=== PATIENT | male | born 1970 | race Caucasian/White ===

== ENCOUNTER 2017-01-14 15:08 | Emergency (ER) | payer MEDICARE, OTHER | END 2017-01-14 16:20 | disposition home or self-care (01) | LOC: ER1 15:08 | DX: M10.9 Gout, unspecified (principal); I10 Essential (primary) hypertension | CPT/HCPCS: 96372; 99283; J1885; J2930 ==

== ENCOUNTER 2017-02-01 12:35 | Emergency (ER) | payer MEDICARE, OTHER ==
[2017-02-01 13:33] LABS: HEMOGLOBIN 14.7 gm/dl (14.0-17.5); RED BLOOD COUNT 4.53 M/UL (4.20-5.50)
[2017-02-01 13:56] LABS: BUN/CREATININE RATIO 8 (0-10)
== END 2017-02-01 14:35 | disposition home or self-care (01) ==
LOC: ER1 12:35
PROVIDERS: Physician Assistant Medical
DX: M10.9 Gout, unspecified (principal); Z79.899 Other long term (current) drug therapy
CPT/HCPCS: 36415; 80053; 84550; 85025; 96372; 99283; J1885; J2930

== ENCOUNTER 2020-10-20 16:47 | Emergency (ER) | payer MEDICARE, OTHER ==
[~2020-10-20 16:47] MED LIST: ANTIVERT 12.512.5 MG PO; AUGMENTIN 875-1 EACH PO; BENADRYL 25MG C25 MG PO; CATAPRES0.2 MG PO; CILOXAN 0.3% O2.5 ML EYEBOTH; CLINDAMYCIN HC300 MG PO; CLONAZEPAM1 MG PO; COLCHICINE0.6 M1 PO; DOXYCYCLINE HY100 MG PO; FLONASE 0.05% N16 GM; HYDROCODON-ACE1 EAC4 PO; KENALOG CREAM 015 GM TOP; LEVAQUIN750 MG PO; LEVOFLOXACIN250 MG PO; MEDROL DOSEPAK 24 MG PO; MEDROL4 MG PO; METHOTREXATE SQ; NEURONTIN 300300 MG PO; NORCO 5-325 TA1 EACH PO; NORCO 7.5-3251 EACH PO; NORFLEX 100 MG100 MG PO; OMNICEF 300 MG300 MG PO; PERCOCET 5-3251 EACH PO; PERCOCET 5/325 T1 EA PO; PERIACTIN PO; PREDNISONE 20 M20 MG PO; PREDNISONE 50 M50 MG PO; PREDNISONE20 MG PO; PREDNISONE50 MG PO; PREVACID30 MG PO; PROTONIX40 MG PO; REMERON30 MG PO; ROBAXIN500 MG PO; TESTOSTERONE SQ; TYLENOL 500 MG500 MG PO; VENTOLIN HFA 66.7 GM INH; VISTARIL 25 MG25 MG PO; VISTARIL25 MG PO; VISTARIL50 MG PO; VITAMIN B-1100 MG PO; Voltaren Gel 1 % TOP; WELLBUTRIN 100100 MG PO; ZANAFLEX4 MG PO; ZITHROMAX250 MG PO; ZOFRAN4 MG PO; [UNRECOGNIZED DRUG - OTHER] IV
[2020-10-20] MEDS ORDERED: PREDNISONE 20 M20 MG PO (17:39)
[2020-10-20] MEDS ORDERED: BACTRIM DS TAB1 EACH PO (17:40)
== END 2020-10-20 19:03 | disposition home or self-care (01) ==
LOC: ER1 16:47
DX: M06.9 Rheumatoid arthritis, unspecified (principal); L93.0 Discoid lupus erythematosus; Z88.6 Allergy status to analgesic agent
CPT/HCPCS: 96372; 99282; J2360; J3360

== ENCOUNTER 2020-11-04 06:55 | Emergency (ER) | payer MEDICARE, OTHER ==
[~2020-11-04 06:55] MED LIST changes: +BACTRIM DS TAB1 EACH PO
[2020-11-04 10:22] LABS: RED BLOOD COUNT 4.99 M/UL (4.20-5.50); WHITE BLOOD COUNT 10.1 K/UL (4.5-11.0)
[2020-11-04 10:29] LABS: BUN/CREATININE RATIO 7 (0-10)
[2020-11-04] MEDS ORDERED: PREDNISONE50 MG PO (11:22)
[2020-11-04] MEDS ORDERED: ZOFRAN ODT 4 MG4 MG PO (11:22)
== END 2020-11-04 12:24 | disposition home or self-care (01) ==
LOC: ER1 06:55
PROVIDERS: Emergency Medicine
DX: M06.9 Rheumatoid arthritis, unspecified (principal); D89.89 Other specified disorders involving the immune mechanism, not elsewhere classified; R11.0 Nausea; F17.290 Nicotine dependence, other tobacco product, uncomplicated; Z88.6 Allergy status to analgesic agent
CPT/HCPCS: 80053; 81001; 83690; 83735; 85025; 96374; 96375; 99283; J2405; J2930

== ENCOUNTER 2020-11-13 13:57 | Emergency (ER) | payer MEDICARE, OTHER ==
[~2020-11-13 13:57] MED LIST changes: +ZOFRAN ODT 4 MG4 MG PO
[2020-11-13 16:06] LABS: HEMOGLOBIN 11.8 gm/dl (14.0-17.5); RED BLOOD COUNT 4.66 M/UL (4.20-5.50); WHITE BLOOD COUNT 10.6 K/UL (4.5-11.0)
[2020-11-13 16:32] LABS: BUN/CREATININE RATIO 8 (0-10)
[2020-11-13] MEDS ORDERED: COLCHICINE0.6 MG PO (18:03)
== END 2020-11-13 18:21 | disposition home or self-care (01) ==
LOC: ER1 13:57
PROVIDERS: Physician Assistant Medical
DX: M10.9 Gout, unspecified (principal); G89.29 Other chronic pain; Z88.6 Allergy status to analgesic agent; Z87.81 Personal history of (healed) traumatic fracture
CPT/HCPCS: 70450; 74018; 80053; 81001; 83605; 84550; 85025; 96374; 96375; 99284; J1100; J2270; J2405

== ENCOUNTER 2020-11-15 10:36 | Emergency (ER) | payer MEDICARE, OTHER ==
[~2020-11-15 10:36] MED LIST changes: +COLCHICINE0.6 MG PO
[2020-11-15 12:07] LABS: RED BLOOD COUNT 4.73 M/UL (4.20-5.50); WHITE BLOOD COUNT 8.6 K/UL (4.5-11.0)
[2020-11-15 12:36] LABS: BUN/CREATININE RATIO 8 (0-10)
[2020-11-15] MEDS ORDERED: ZOFRAN ODT 4 MG4 MG SL (13:08)
== END 2020-11-15 13:36 | disposition home or self-care (01) ==
LOC: ER1 10:36
PROVIDERS: Family Medicine
DX: F41.1 Generalized anxiety disorder (principal); F43.9 Reaction to severe stress, unspecified; G89.29 Other chronic pain; Z87.19 Personal history of other diseases of the digestive system; Z88.6 Allergy status to analgesic agent
CPT/HCPCS: 36415; 80053; 81001; 85025; 99283

== ENCOUNTER 2020-11-24 16:35 | Emergency (ER) | payer MEDICARE, OTHER ==
[~2020-11-24 16:35] MED LIST changes: +ZOFRAN ODT 4 MG4 MG SL
[2020-11-24 20:36] LABS: HEMOGLOBIN 13.3 gm/dl (14.0-17.5); RED BLOOD COUNT 5.13 M/UL (4.20-5.50); WHITE BLOOD COUNT 16.5 K/UL (4.5-11.0)
[2020-11-24 20:48] LABS: BUN/CREATININE RATIO 7 (0-10)
== END 2020-11-25 04:09 | disposition left against medical advice (07) ==
LOC: ER1 16:35
PROVIDERS: Family Medicine; Physician Assistant
DX: R53.1 Weakness (principal); F32.9 Major depressive disorder, single episode, unspecified; F22 Delusional disorders; F41.9 Anxiety disorder, unspecified; Z20.822 Contact with and (suspected) exposure to COVID-19; F13.20 Sedative, hypnotic or anxiolytic dependence, uncomplicated; F11.90 Opioid use, unspecified, uncomplicated; M06.9 Rheumatoid arthritis, unspecified; I10 Essential (primary) hypertension; G89.29 Other chronic pain; Z79.899 Other long term (current) drug therapy; Z87.39 Personal history of other diseases of the musculoskeletal system and connective tissue
CPT/HCPCS: 0240U; 36415; 80053; 80307; 81001; 84550; 85025; 85652; 86140; 99284